=== PATIENT | male | born 1970 | race Caucasian/White ===

== ENCOUNTER 2017-05-28 11:01 | Emergency (ER) | payer OTHER ==
[~2017-05-28] VITALS: Ht 180.3 cm; Wt 103.0 kg
[~2017-05-28 11:01] MED LIST: ANTIVERT/2525 M1 PO; CLARITIN10 MG PO; CLINDAMYCIN HC300 MG PO; FLONASE ALLERG9.9 ML NAS; PREDNISONE10 MG PO; ROBITUSSIN AC 110 ML PO; VICODIN 5/500 505 MG PO
[2017-05-28] MEDS ORDERED: Peridex 473 ML473 ML PO (11:21)
[2017-05-28] MEDS ORDERED: NAPROSYN500 MG PO (11:21)
[2017-05-28] MEDS ORDERED: HYDROCODONE BIT1 T11 PO (11:21)
[2017-05-28] MEDS ORDERED: CLINDAMYCIN150 MG PO (11:21)
== END 2017-05-28 11:30 | disposition home or self-care (01) ==
LOC: ED 11:01
DX: K04.7 Periapical abscess without sinus (principal); R03.0 Elevated blood-pressure reading, without diagnosis of hypertension; F17.200 Nicotine dependence, unspecified, uncomplicated; J44.9 Chronic obstructive pulmonary disease, unspecified

== ENCOUNTER → 2019-08-01 | Outpatient (CLI) | payer OTHER ==
[~2019-08-01] MED LIST changes: +CLINDAMYCIN150 MG PO; +HYDROCODONE BIT1 T11 PO; +NAPROSYN500 MG PO; +PROVENTIL HFA6.7 GM INH; +Peridex 473 ML473 ML PO
--- NOTE | 2019-08-01 08:00 | NUR ---
INFORMED CONSENT SIGNED FOR STANDARD STRESS TEST WITH DR. CRAWFORD. RESTING EKG NSR, HR 78, BP 110/74. COMPLETED 6:29 OF A TWO MINUTE MATTHEW PROTOCOL COMPLETING :29 STAGE IV, 4.2 MPH/16% GRADE. PEAK HEART RATE OF 152 ACHIEVED WHICH IS 89% PREDICTED MAXIMUM AND A PEAK BP OF 200/0. TEST TERMINATED D/T FATIGUE. NO ARRHYTHMIAS OR ST CHANGES NOTED. PT HAS A GOOD EXERCXISE TOLERANCE. LAST RECOVERY HR 102, BP 128/64. THIS IS A NEGATIVE STRESS TEST. LEFT CARDIOLOGY IN STABLE CONDITION.
== END | disposition home or self-care (01) ==
LOC: CARD 00:18
DX: R07.9 Chest pain, unspecified (principal); F17.200 Nicotine dependence, unspecified, uncomplicated

== ENCOUNTER → 2021-02-13 | Outpatient (CLI) | payer OTHER | END | disposition home or self-care (01) | LOC: RAD 13:18 | PROVIDERS: ATTEND Emergency Medicine | DX: J98.11 Atelectasis (principal); J98.4 Other disorders of lung ==

== ENCOUNTER 2021-03-09 16:54 | Emergency (ER) | payer OTHER ==
[~2021-03-09] VITALS: Ht 180.3 cm; Wt 113.4 kg
[2021-03-09] MEDS ORDERED: TESSALON PERLE100 MG PO (20:39)
== END 2021-03-09 20:39 | disposition home or self-care (01) ==
LOC: ED 16:54
DX: R07.81 Pleurodynia (principal); F17.200 Nicotine dependence, unspecified, uncomplicated; Z79.899 Other long term (current) drug therapy; X50.1XXA Overexertion from prolonged static or awkward postures, initial encounter; Y93.89 Activity, other specified; Y92.89 Other specified places as the place of occurrence of the external cause; Y99.8 Other external cause status

== ENCOUNTER 2022-01-15 19:24 | Emergency (ER) | payer OTHER ==
[~2022-01-15 19:24] MED LIST changes: +TESSALON PERLE100 MG PO
[2022-01-15] MEDS ORDERED: PENICILLIN VK500 MG PO (19:49)
== END 2022-01-15 20:24 | disposition home or self-care (01) ==
LOC: ED 19:24
DX: K02.9 Dental caries, unspecified (principal)

== ENCOUNTER → 2022-07-02 | Outpatient (CLI) | payer OTHER ==
[~2022-07-02] MED LIST changes: +PENICILLIN VK500 MG PO
== END | disposition home or self-care (01) ==
LOC: RAD 15:50
PROVIDERS: ATTEND Nurse Practitioner Gerontology
DX: M47.812 Spondylosis without myelopathy or radiculopathy, cervical region (principal); M25.78 Osteophyte, vertebrae; M48.02 Spinal stenosis, cervical region; M50.322 Other cervical disc degeneration at C5-C6 level

== ENCOUNTER 2022-07-23 21:06 | Emergency (ER) | payer OTHER ==
[2022-07-23] MEDS ORDERED: SEPTDS PO (21:17)
== END 2022-07-23 21:15 | disposition home or self-care (01) ==
LOC: ED 21:06
DX: T63.441A Toxic effect of venom of bees, accidental (unintentional), initial encounter (principal); Y92.89 Other specified places as the place of occurrence of the external cause

== ENCOUNTER → 2022-11-18 | Outpatient (CLI) | payer OTHER ==
[~2022-11-18] MED LIST changes: +SEPTDS PO
[2022-11-18 12:24] LABS: BASO # 0.1 10*3/uL (0.0-0.1); BASO % 0.7 % (0.0-1.0); EOS # 0.1 10*3/uL (0.0-0.4); EOS % 1.1 % (1.0-4.0); HEMATOCRIT 49.5 % (42.0-52.0); LYMPH # 2.3 10*3/uL (1.3-4.4); LYMPH % 27.6 % (27.0-41.0); MEAN CORPUSCULAR HGB 31.7 pg (27.0-31.0); MEAN CORPUSCULAR HGB CONC 33.3 g/dl (33.0-37.0); MEAN PLATELET VOLUME 9.9 fl (9.6-12.3); MONO % 12.4 % (3.0-9.0); NEUT # 4.8 10*3/uL (2.3-7.9); PLATELET COUNT AUTOMATED 249 10*3/uL (130-400); RED BLOOD COUNT 5.21 10*6/uL (4.50-5.90); RED CELL DISTRI WIDTH 13.1 % (0-14.5); WHITE BLOOD COUNT 8.2 10*3/uL (4.8-10.8)
== END | disposition home or self-care (01) ==
LOC: LAB 11:36
PROVIDERS: ATTEND Internal Medicine Pulmonary Disease
DX: J44.9 Chronic obstructive pulmonary disease, unspecified (principal)

== ENCOUNTER 2023-01-19 19:39 | Emergency (ER) | payer OTHER ==
[~2023-01-19] VITALS: Ht 180.3 cm; Wt 108.0 kg
[2023-01-19] MEDS ORDERED: PENICILLIN VK500 MG PO (20:02)
[2023-01-19] MEDS ORDERED: IBU800 MG PO (20:03)
== END 2023-01-19 20:10 | disposition home or self-care (01) ==
LOC: ED 19:39
DX: K08.89 Other specified disorders of teeth and supporting structures (principal); J45.909 Unspecified asthma, uncomplicated

== ENCOUNTER → 2024-06-01 | Outpatient (CLI) | payer OTHER ==
[~2024-06-01] MED LIST changes: +IBU800 MG PO
== END | disposition home or self-care (01) ==
LOC: RAD 09:32
PROVIDERS: ATTEND Emergency Medicine
DX: M50.123 Cervical disc disorder at C6-C7 level with radiculopathy (principal); M50.121 Cervical disc disorder at C4-C5 level with radiculopathy; M47.22 Other spondylosis with radiculopathy, cervical region

== ENCOUNTER → 2025-04-26 | Outpatient (CLI) | payer OTHER | END | disposition home or self-care (01) | LOC: RAD 17:38 | DX: M79.89 Other specified soft tissue disorders (principal); M25.462 Effusion, left knee; M25.562 Pain in left knee ==